=== PATIENT | male | born 1965 | race Caucasian/White ===

== ENCOUNTER 2020-04-02 17:03 | Emergency (ER) | payer OTHER, SELFPAY ==
--- NOTE | ~2020-04-02 | XR_ITS ---
EXAMINATION: XR lumbar spine 2-3V EXAM DATE: 04/02/2020 17:51 INDICATION: Low back pain. TECHNIQUE: Lumber spine frontal, lateral, lateral L5-S1 projections for interpretation. There is no prior study for comparison. FINDINGS: Large bridging osteophytes at the L3-4 level. The vertebral bodies are aligned in the AP d imension. There is mild to moderate anterior wedging, compression fracture at the L2 level with scler osis in the lateral body. Sclerosis could indicate that this fracture is subacute, or it could be a p athological compression fracture from underlying metastatic disease. There is mild compression fractu re at the L1 level above. There is mild to moderate disc disease at L1-2, mild loss of the other thor acolumbar disc heights. There is advanced lower lumbar facet arthropathy. Sacrum, sacroiliac joints, sacral arcuate lines are intact. IMPRESSION: 1. L2 mild to moderate compression fracture with sclerosis; could be subacute or pathological. Consi gian correlation with PSA level, nonemergent bone scan. 2. Mild chronic appearing L1 compression fracture. 3. Advanced lower lumbar facet arthropathy. Reviewed, dictated and finalized at location A. IMPRESSION: 1. L2 mild to moderate compression fracture with sclerosis; could be subacute or pathological. Consider correlation with PSA level, nonemergent bone scan. 2. Mild chronic appearing L1 compression fracture. 3. Advanced lower lumbar facet arthropathy.
[2020-04-02 17:12] VITALS: BP 149/97; PULSE 85; RESP 18; TEMP 36.9; O2SAT 99
[2020-04-02] MEDS: SODIUM CHLORIDE 0.9% IV 1,000 ML 999 ML IV CONT (17:48)
[2020-04-02] MEDS: KETOROLAC 30 MG/ML VIAL (*BKC) IV PUSH (17:49)
--- NOTE | 2020-04-02 18:06 | ED.GENADULT ---
HPI - General Adult General Chief complaint: Unspecified Stated complaint: pain in back of my legs Time Seen by Provider: 04/02/20 17:14 History of Present Illness HPI narrative: Patient is a 55-year-old male who presents the ER with low back pain for last 3 days. Was moving his house when he developed pain. It sharp and goes down to his right thigh. Main tenderness is in the right paraspinal musculature is post midline. No numbness or tingling in lower extremities. No saddle anesthesia. No urinary or fecal incontinence from inability to sense. Patient does report due to the fact that he has a hard time moving due to pain will sometimes start to dribble before he gets to the bathroom. Related Data Allergies Allergy/AdvReac Type Severity Reaction Status Date / Time No Known Allergies Allergy Verified 04/02/20 17:19 Review of Systems Constitutional: Constitutional: Denies chills and Denies fever(s) Genitourinary: Genitourinary: Denies hematuria, Denies oliguria, Denies dysuria and Denies urinary incontinence Musculoskeletal: Musculoskeletal: Reports back pain, Denies joint swelling and Denies muscle cramps Neurologic: Denies focal weakness and Denies numbness PMFSH Past Medical History Medical History (Updated 04/02/20 @ 18:50 by Max Weinstein MD) Patient denies significant medical history Surgical History Surgical History (Updated 04/02/20 @ 18:09 by Max Weinstein MD) No pertinent past surgical history Social History Social History (Updated 04/02/20 @ 18:10 by Max Weinstein MD) Smoking status: Current every day smoker Gender identity (if verbalized by the patient): Male Exam Narrative: Exam Narrative: GENERAL: Uncomfortable-appearing, well-nourished, and in no acute distress. HEAD: Normocephalic, atraumatic. CHEST: Clear to auscultation. No respiratory distress. HEART: Regular rate and rhythm. Normal peripheral pulses. Back: No midline tenderness of the thoracic spine mild discomfort near L2 midline but significant discomfort in the right paraspinal musculature from L1 down to L5. No SI tenderness or sacral tenderness. EXTREMITIES: Normal range of motion. No edema. SKIN: Warm, dry, no rash. NEURO: No focal deficits. Alert and oriented x3. Course Course Emergency Course: Patient's pain is gone after Toradol and Valium. No midline tenderness or paraspinal muscular tenderness. Patient feels that fracture on x-ray is his old fracture that was noted at L2 in the past. Recommend he follow-up with his PCP. Vital Signs Vital signs: Vital Signs Temperature 98.5 F 04/02/20 17:12 Pulse Rate 85 04/02/20 17:12 Respiratory Rate 18 04/02/20 17:12 Blood Pressure 149/97 H 04/02/20 17:12 Pulse Oximetry 99 04/02/20 17:12 Temperature 98.5 F 04/02/20 17:12 Pulse Rate 85 04/02/20 17:12 Respiratory Rate 18 04/02/20 17:12 Blood Pressure 149/97 H 04/02/20 17:12 Pulse Oximetry 99 04/02/20 17:12 Medical Decision Making Vital Signs Vital Signs: Vital Signs Temperature 98.5 F 04/02/20 17:12 Pulse Rate 85 04/02/20 17:12 Respiratory Rate 18 04/02/20 17:12 Blood Pressure 149/97 H 04/02/20 17:12 Pulse Oximetry 99 04/02/20 17:12 Temperature 98.5 F 04/02/20 17:12 Pulse Rate 85 04/02/20 17:12 Respiratory Rate 18 04/02/20 17:12 Blood Pressure 149/97 H 04/02/20 17:12 Pulse Oximetry 99 04/02/20 17:12 Discharge Plan Discharge Clinical Impression: Lumbar strain Patient Disposition: Home, Self-Care Condition: Stable Instructions: Low Back Strain (ED), Lower Back Exercises (ED) Additional Instructions: Return to the ER if you have increased pain in your back, you develop lower extremity weakness/numbness/paralysis, you have numbness or tingling in your private parts, or you are unable to control your ability to urinate/stool. Follow up with your primary care doctor, Dr. Landeros. Prescriptions: New cyclobenzaprine 10
[2020-04-02 19:11] VITALS: BP 140/75; PULSE 74; RESP 18; TEMP 36.6; O2SAT 99
== END 2020-04-02 19:12 | disposition home or self-care (01) ==
PROVIDERS: Emergency Provider Emergency Medicine
DX: S39.012A Strain of muscle, fascia and tendon of lower back, initial encounter (principal); F17.200 Nicotine dependence, unspecified, uncomplicated; X50.9XXA Other and unspecified overexertion or strenuous movements or postures, initial encounter
CPT/HCPCS: 72100; 96361; 96374; 96375; 99284; J1885; J3360; J7030

== ENCOUNTER 2020-05-17 22:02 | Emergency (ER) | payer OTHER, SELFPAY ==
[2020-05-17 22:07] VITALS: BP 131/82; PULSE 87; RESP 20; TEMP 36.5; O2SAT 98
--- NOTE | 2020-05-17 23:28 | PC.NURSE ---
pt states that he will come back tomorrow. pt ambulatory out of ed without difficulty.
== END 2020-05-17 23:28 | disposition left against medical advice (07) ==
PROVIDERS: PCP Internal Medicine Infectious Disease
DX: M54.9 Dorsalgia, unspecified (principal)
CPT/HCPCS: 99199

== ENCOUNTER 2020-06-03 11:12 | Emergency (ER) | payer OTHER, SELFPAY ==
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
[2020-06-03 11:10] VITALS: PULSE 67; RESP 16; TEMP 36.7; O2SAT 99
[2020-06-03] MEDS: KETOROLAC (*BKC) 60 MG/2 ML VIAL 30 MG IM (11:50)
--- NOTE | 2020-06-03 12:54 | ED.BACK ---
HPI - Back Pain/Injury General Chief Complaint: Back Pain/Injury <David Valladares PA-C - Last Filed: 06/03/20 16:14> Stated Complaint: back pain <ROGELIO Villanueva Last Filed: 06/03/20 16:14> Time Seen by Provider: 06/03/20 11:15 <David Valladares PA-C - Last Filed: 06/03/20 16:14> Source: patient <ROGELIO Villanueva Last Filed: 06/03/20 16:14> Mode of arrival: ambulatory <ROGELIO Villanueva Last Filed: 06/03/20 16:14> Limitations: no limitations <ROGELIO Villanueva Filed: 06/03/20 16:14> History of Present Illness HPI Narrative: Patient presents with CC of exacerbation of chronic low back pain for 2-3 weeks. Patient states he has not had any recent falls or direct trauma to back. He reports pain is worse with walking and flexion. Patient denies loss of sensation or ROM to lower extremities or loss of bowel or bladder function. Patient has not seen his PCP Dr Landeros regarding his exacerbated back pain. Patient states he has been taking tylenol and ibuprofen with little relief. <David Valladares PA-C - Last Filed: 06/03/20 16:14> Related Data Allergies/Adverse Reactions: Allergies Allergy/AdvReac Type Severity Reaction Status Date / Time No Known Allergies Allergy Verified 06/03/20 11:14 <David Valladares PA-C - Last Filed: 06/03/20 16:14> Review of Systems Review of Systems: Narrative: CONSTITUTIONAL: Denies fever, chills, or sweats. EYES: Denies visual changes, redness, or discharge. ENT: Denies rhinorrhea, congestion, sore throat, or otalgia. CARDIOVASCULAR: Denies chest pain, palpitations, or edema. RESPIRATORY: Denies cough or dyspnea. GASTROINTESTINAL: Denies abdominal pain, nausea, vomiting, or diarrhea. GENITOURINARY: Denies dysuria or hematuria. SKIN: Denies rash or itching. MUSCULOSKELETAL: Reports back pain, Denies myalgia, or joint pain NEUROLOGIC: Denies headache, numbness, dizziness, or weakness. PSYCHIATRIC: Denies anxiety or depression. <David Valladares PA-C - Last Filed: 06/03/20 16:14> PMFSH Social History Social History: Social History Gender identity (if verbalized by the patient): Male <David Valladares PA-C - Last Filed: 06/03/20 16:14> Exam Narrative: Exam Narrative: GENERAL: Well-appearing, well-nourished. HEAD: Normocephalic, atraumatic. EYES: PERRLA and EOMI. ENT: Nares clear, no rhinorrhea or epistaxis. Mucous membranes moist. Oropharynx without tonsillar hypertrophy exudate or other lesions. Bilateral TMs pearly fournier nonbulging NECK: Supple. No adenopathy or masses. No vertebral tenderness or loss of ROM. CHEST: Clear to auscultation. No respiratory distress. No wheezes rales or rhonchi HEART: Regular rate and rhythm. Normal peripheral pulses. BACK: Large cyct noted to upper thoracic area, not painful. Tenderness with palpation of proximal lumbar spine. Flexion ilicits pain. Patient able to ambulate with steady gait. EXTREMITIES: No acute changes in ROM or sensation. No edema. SKIN: Warm, dry, no rash. NEURO: No focal deficits. Alert and oriented x3. PSYCH: Normal mood and affect. <David Valladares PA-C - Last Filed: 06/03/20 16:14> Course Vital Signs Vital signs: Vital Signs Temperature 98.1 F 06/03/20 11:10 Pulse Rate 67 06/03/20 11:10 Respiratory Rate 16 06/03/20 11:10 Pulse Oximetry 99 06/03/20 11:10 Temperature 98.1 F 06/03/20 11:10 Pulse Rate 65 06/03/20 13:25 Respiratory Rate 17 06/03/20 13:25 Blood Pressure 132/76 06/03/20 13:25 Pulse Oximetry 99 06/03/20 13:25 <David Valladares PA-C - Last Filed: 06/03/20 16:14> Vital Signs Temperature 98.1 F 06/03/20 11:10 Pulse Rate 67 06/03/20 11:10 Respiratory Rate 16 06/03/20 11:10 Pulse Oximetry 99 06/03/20 11:10 Temperature 98.1 F 06/03/20 11:10 Pulse Rate 65 06/03/20 13:25 Respiratory Rate 17 06/03/20 13:25 Blood Pressure 132/76 06/03/20 13:25 Pulse Oximetry 99
[2020-06-03 13:25] VITALS: BP 132/76; PULSE 65; RESP 17; O2SAT 99
== END 2020-06-03 13:27 | disposition home or self-care (01) ==
PROVIDERS: Emergency Provider General Practice
DX: M48.56XA Collapsed vertebra, not elsewhere classified, lumbar region, initial encounter for fracture (principal); M85.88 Other specified disorders of bone density and structure, other site
CPT/HCPCS: 72110; 96372; 99283; J1885

== ENCOUNTER 2020-06-14 23:01 | Emergency (ER) | payer OTHER, SELFPAY ==
--- NOTE | ~2020-06-14 | CT_ITS ---
EXAMINATION: CT abdomen pelvis wo con EXAM DATE: 06/14/2020 23:28 INDICATION: left flank pain TECHNIQUE: Spiral CT of the abdomen and pelvis was performed without contrast. Axial, coronal and sag ittal images were reviewed. The dose-length product (DLP) for this examination was 260.23 mGy-cm. T he exposure was tailored according to patient size (auto mA exposure control), and iterative reconstr uction (ASIR) was used as additional dose reduction technique. There is no prior study for compariso n. FINDINGS: There are pathologically enlarged retroperitoneal lymph nodes, one of the larger nodes jean paul uring about 2.2 x 1.3 cm Mild nonspecific bilateral perinephric fat stranding. There is punctate righ t nephrolithiasis. There is moderate prostatomegaly. The bladder is severely distended. The liver, spleen, adrenal glands and pancreas are unremarkable. Gallbladder is unremarkable. No biliary obstr uction. There is moderate scattered arteriosclerotic disease. The appendix is normal. The stomach and small bowel are unremarkable. There is moderate amount of c olonic stool. There is mild sigmoid colonic diverticulosis. There is no adjacent inflammatory change to suggest diverticulitis. No free intraperitoneal gas. The heart is normal in size. There are n o pericardial or pleural effusions. There is mild to moderate basilar emphysema and evidence of mode rate hyperinflation. Scattered osteoblastic disease, with complete marrow replacement of the L2 vert ebral body, and mild to moderate pathological compression fracture. Other smaller blastic regions in T11, T12, L1, L4. IMPRESSION: 1. Moderate prostatomegaly, severely distended bladder. If patient unable to void, consider bladder outlet obstruction or neurogenic bladder. Follow-up pre and post void ultrasound can be considered. 2. Retroperitoneal lymphadenopathy and osteoblastic disease. Prostate cancer could explain these fin dings but lymphoma or other malignancy also possible. 3. Punctate right nephrolithiasis. No hydronephrosis. 4. Moderate colonic stool. 5. Mild colonic diverticulosis. Reviewed, dictated and finalized at location G. IMPRESSION: 1. Moderate prostatomegaly, severely distended bladder. If patient unable to v oid, consider bladder outlet obstruction or neurogenic bladder. Follow-up pre a nd post void ultrasound can be considered. 2. Retroperitoneal lymphadenopathy and osteoblastic disease. Prostate cancer c ould explain these findings but lymphoma or other malignancy also possible. 3. Punctate right nephrolithiasis. No hydronephrosis. 4. Moderate colonic stool. 5. Mild colonic diverticulosis.
[2020-06-14 23:06] VITALS: BP 151/99; PULSE 97
--- NOTE | 2020-06-14 23:19 | ED.GENADULT ---
[facility] - General Adult General Chief complaint: Extremity Problem,Nontraumatic Stated complaint: BILATERAL LEG PAIN Time Seen by Provider: 06/14/20 23:01 Source: patient Mode of arrival: ambulatory Limitations: no limitations History of Present Illness HPI narrative: Patient is a 55-year-old male complaining of left flank pain radiating to the left groin and left lower extremity, 9 out of 10, sharp, started today. Patient was seen here last week for the same complaint. Patient states he was recently diagnosed with prostate cancer and has appointment to see his doctor this week. Denies chest pain, shortness of breath, abdominal pain, nausea vomiting, diarrhea or fever. Related Data Allergies Allergy/AdvReac Type Severity Reaction Status Date / Time No Known Allergies Allergy Verified 04/02/20 17:19 Review of Systems Review of Systems: All systems reviewed & are unremarkable except as noted in HPI and below Constitutional: Constitutional: Denies body ache(s), Denies chills, Denies excessive sweating, Denies fatigue, Denies fever(s), Denies headache(s), Denies lethargy, Denies malaise, Denies weakness and Denies weight loss Eyes: Eyes: Denies blurry vision, Denies change in vision and Denies loss of vision ENT: Denies dizziness, Denies ear discharge, Denies headache(s), Denies lip swelling, Denies epistaxis, Denies nasal congestion, Denies neck pain, Denies throat swelling and Denies tongue swelling Cardiovascular: Cardiovascular: Denies chest pain, Denies chest pain at rest, Denies chest pain with activity, Denies diaphoresis, Denies rapid heart rate, Denies edema, Denies irregular heart rhythm, Denies lightheadedness, Denies palpitations, Denies dyspnea and Denies dyspnea on exertion Respiratory: Respiratory: Denies chest congestion, Denies cough, Denies hemoptysis, Denies dyspnea and Denies dyspnea on exertion Gastrointestinal: Gastrointestinal: Denies abdominal pain, Denies melena, Denies hematochezia, Denies diarrhea, Denies nausea, Denies vomiting and Denies hematemesis Musculoskeletal: Musculoskeletal: Denies abnormal gait, Denies deformity, Denies joint swelling, Denies limited range of motion, Denies neck pain and Denies numbness Neurologic: Denies Abnormal speech present, Denies abnormal gait, Denies confusion, Denies dizziness, Denies headache(s), Denies focal weakness, Denies loss of vision, Denies numbness, Denies Other visual disturbances, Denies Sensory deficit (Neuro) and Denies weakness Psychiatric: Psychiatric: Denies confusion, Denies depression, Denies auditory hallucinations, Denies homicidal ideation and Denies suicidal ideation Endocrine: Endocrine: Denies cold intolerance, Denies excessive sweating, Denies fatigue, Denies heat intolerance and Denies palpitations Hematologic/Lymphatic: Hematologic/Lymphatic: Denies easy bleeding and Denies easy bruising Allergic/Immunologic: Allergic/Immunologic: Denies lip swelling, Denies throat swelling and Denies tongue swelling PMFSH Past Medical History Medical History (Updated 06/15/20 @ 01:42 by Tadeo Griggs MD) Patient denies significant medical history Surgical History Surgical History (Updated 04/02/20 @ 18:09 by Max Weinstein MD) No pertinent past surgical history Social History Social History (Updated 04/02/20 @ 18:10 by Max Weinstein MD) Smoking status: Current every day smoker Gender identity (if verbalized by the patient): Male Exam Const: General: cooperative, healthy appearing, comfortable, no acute distress, well developed, alert and awake; No confusion Orientation/consciousness: oriented to person, oriented to place, oriented to time, patient oriented x3 and No confusion Limitations: no limitations HENMT: Head: normal to inspection, normocephalic and atraumatic Ears: hearing grossly normal bilaterally, TM normal on the right and TM normal on the left General nose exam: Normal external nose present, Normal nares present an
[2020-06-14 23:30] LABS: Basophils Absolute Auto 0.1 K/mm3 (0.0-0.1); Basophils Percent Auto 0.4 % (0.2-1.2); Eosinophils Absolute Auto 0.1 K/mm3 (0-0.3); Eosinophils Percent Auto 0.9 % (0-4.4); Hematocrit 46.5 % (42.0-52.0); Hemoglobin 15.4 g/dL (14.0-18.0); Immature Granulocyte Absolute 0.07 K/mm3 (0.00-0.031); Immature Granulocyte Percent A 0.5 % (0-0.5); Lymphocytes Absolute Auto 2.51 K/mm3 (0.9-3.2); Lymphocytes Percent Auto 18.3 % (18.3-44.2); Mean Corpuscular HGB Conc 33.1 g/dl (32-36); Mean Corpuscular Hemoglobin 30.7 pg (26-34); Mean Corpuscular Volume 92.6 fl (80-100); Mean Platelet Volume 8.3 fl (7.4-10.4); Monocytes Absolute Auto 0.9 K/mm3 (0.1-0.6); Monocytes Percent Auto 6.6 % (2.6-8.5); Neutrophils Absolute Auto 10.1 K/mm3 (1.3-6.7); Neutrophils Percent Auto 73.3 % (45.5-73.1); Platelet Count Result 372 k/mm3 (150-375); Red Blood Count 5.02 M/mm3 (4.6-6.20); Red Cell Distribution Width 13.5 % (11.5-14.5); White Blood Count 13.8 K/mm3 (4.5-10.0)
[2020-06-14 23:40] LABS: Alanine Aminotransferase 11 U/L (4-50); Albumin Level 3.9 g/dL (3.5-5.1); Alkaline Phosphatase 298 U/L (38-126); Anion Gap 11 mmol/L (8-16); Aspartate Amino Transferase 21 U/L (17-59); Bilirubin,Total 0.4 mg/dL (0.2-1.3); Blood Urea Nitrogen 16 mg/dL (9-20); Calcium 9.5 mg/dL (8.4-10.2); Carbon Dioxide 26 mmol/L (22-30); Chloride 104 mmol/L (98-107); Estimated Glomerular Filt Rate > 60; Glucose 132 mg/dL (75-110); Potassium 3.8 mmol/L (3.4-5.0); Sodium 141 mmol/L (137-145)
[2020-06-14] MEDS: KETOROLAC 30 MG/ML VIAL (*BKC) IV PUSH (23:43)
[2020-06-14] MEDS: diazePAM INJ (*CRX) 10 MG/2 ML SYRINGE 5 MG IV PUSH (23:45)
[2020-06-15 01:23] LABS: Add Urine Microscopic? YES; Appearance Urine Clear (Clear); Bacteria Urine Trace /hpf; Bilirubin Urine Negative (Negative); Blood Urine 1+ (Negative); Color Urine Yellow (Yellow); Glucose Urine UA Negative (Negative); Ketones Urine Negative (Negative); Leukocyte Esterase Ur Negative LEU/UL (Negative); Mucus Urine Rare /lpf; Nitrate Urine Negative (Negative); Protein Urine Negative (Negative); Specific Grav Ur 1.014 (1.001-1.035); Urobilinogen Urine Negative mg/dL (<2.0)
[2020-06-15 02:18] VITALS: BP 160/93; PULSE 97; RESP 20; TEMP 37; O2SAT 100
== END 2020-06-15 02:21 | disposition home or self-care (01) ==
PROVIDERS: Emergency Provider Emergency Medicine; PCP Internal Medicine Infectious Disease
DX: N40.1 Benign prostatic hyperplasia with lower urinary tract symptoms (principal); R33.8 Other retention of urine; F17.200 Nicotine dependence, unspecified, uncomplicated; R10.9 Unspecified abdominal pain
CPT/HCPCS: 36415; 51701; 74176; 80053; 81001; 85025; 96374; 96375; 99284; J1885; J3360